=== PATIENT | male | born 1950 | race Caucasian/White ===

== ENCOUNTER 2016-07-16 11:44 | Day surgery (SDC) | payer MEDICARE, OTHER ==
[~2016-07-16] VITALS: Ht 170.2 cm; Wt 80.0 kg
[~2016-07-16 11:44] MED LIST: 0.9% Sodium Chloride 1,000 ML IV SCH; ACET1TAB95 PO; ASCO500C6 PO; ASPI-973 PO; ATOR20TA PO; CHOL200047 PO; FERR325T6 PO; HYDR-3940 PO; INSU100I SUBQ; INSU100I13 SUBQ; LEVO100T6 PO; MYCO180T3 PO; OMEP20TA86 PO; PSYL0.4C2 PO; Sodium Chloride LOK Flush 10 mL Syringe IV PRN; ZLP10T PO; ZYL100 PO; fentaNYL-PF 50 mCg/mL 2 mL Inj IVPUSH PRN
[2016-07-16] MEDS ORDERED: Ketamine 10 mg/mL 20 mL Inj ONE (11:45)
[2016-07-16] MEDS ORDERED: Propofol 10,000 mCg/mL 20 mL Inj ONE (11:45)
[2016-07-16 12:09] VITALS: BP 140/82; PULSE 117; RESP 16; O2SAT 95
[2016-07-16] MEDS ORDERED: TACR5CAP17 PO (12:38)
[2016-07-16] MEDS ORDERED: TACR1CAP22 PO (12:38)
[2016-07-16] MEDS ORDERED: Lactated Ringer's 1,000 ML IV ONE (13:50)
[2016-07-16] MEDS ORDERED: Lactated Ringer's 1,000 ML IV SCH (13:54)
--- NOTE | 2016-07-16 13:54 | PCM.HPANE ---
Patient Data Surgeon Admitting Provider: Attending Provider:Bryce Gonzalez MD Primary Care Physician:Jaylan Morrow MD Other Provider: Reason for Visit Colon Polyp Ht/WT & BMI Height (Feet): 5 Height (Inches): 7 Weight (Kilograms): 80 Body Mass Index 27.00 Allergies Coded Allergies: fish oil (Verified Allergy, Intermediate, Hives, itching, 07/16/16) hydrocodone (Verified Adverse Reaction, Intermediate, Nausea,Vomiting, ) Past Anesthesia History Anesthesia History: Denies:: Abnormal Airway, Anesthesia Reactions, Difficult Intubation, Fam Anesthesia Reaction, Fam Malignant Hypertherm, Malignant Hyperthermia Diabetes History Hx Diabetes?: Yes Current Bedside Blood Glucose: 120 MRSA MRSA: No Medications Hypertension Medication: No Home Meds Incl Beta Samantha: No Reported Medications Tacrolimus ER (Astagraf XL)5 Mg Capsule5 Mg PO DAILY 07/16/16 Omeprazole 20 Mg Tablet.dr20 Mg PO BID Ref 0 07/15/16 Insulin Aspart (NovoLOG U-100 Pen)100 Unit/Ml Insuln.pen12 Units SUBQ TID 07/15/[address] (Mycophenolic DR)180 Mg Tablet2 Capsule PO BID 07/15/16 Psyllium Husk (Metamucil)0.4 Gram Capsule0.52 Gm PO DAILY 07/15/16 Levothyroxine 100 Mcg Tzytmg734 Mcg PO DAILY For Thyroid Replacement Ref 0 07/15/16 Insulin Glargine (Lantus U100 Solostar Insulin Pen)100 Unit/1 Ml Insuln.pen16 Unit SUBQ HS #1 PENINJ Ref 0 07/15/16 Hydralazine 50 Mg Mxqlla05 Mg PO BID Ref 0 07/15/16 Ferrous Sulfate 325 Mg Tablet.dr325 Mg PO DAILY 30 Days Ref 0 07/15/16 Cholecalciferol (Vitamin D3) (Vitamin D3)2,000 Unit Capsule2,000 Unit PO DAILY 07/15/16 Atorvastatin (Lipitor)20 Mg Xfudgi65 Mg PO DAILY Ref 0 07/15/16 Aspirin 81 Mg Oullmu77 Mg PO DAILY Ref 0 07/15/16 Ascorbic Acid (Vitamin C)500 Mg Capsule.er500 Mg PO DAILY 07/15/16 Zolpidem (Ambien)10 Mg Lbgifo92 Mg PO HS PRN For Insomnia Ref 0 07/15/16 Allopurinol 100 Mg Aamjfh285 Mg PO BID Ref 0 07/15/16 Acetaminophen/Pamabrom (Midol)1 Each Tablet1 Each PO HS 500-25 mg, "Tylenol PM" 07/27/14 Discontinued Reported Medications Tacrolimus ER (Astagraf XL)1 Mg Capsule1 Mg PO DAILY 07/16/16 Magnesium Oxide 400 Mg Noiibo436 Mg PO DAILY 10/23/14 Cholecalciferol (Vitamin D3)1,000 Unit Tablet2,000 Unit PO DAILY 07/27/14 Levothyroxine 100 Mcg Cusvsk895 Mcg PO DAILY For Thyroid Replacement #30 TABLET Ref 0 07/27/14 Ascorbic Acid (Vitamin C)1,000 Mg Tab.ezvh566 Mg PO DAILY #30 TABLET Ref 0 07/27/14 Torsemide 20 Mg Fqlsye45 Mg PO DAILY 30 Days Ref 0 07/27/14 Spironolactone 25 Mg Jbfhif45 Mg PO DAILY #30 TABLET Ref 0 07/27/14 Omeprazole Magnesium (Omeprazole)20 Mg Capsule.dr20 Mg PO BID 30 Days Ref 0 07/27/14 Multivitamin (Multivitamins)1 Each Capsule1 Each PO DAILYWM 07/27/14 Metolazone 5 Mg Tablet5 Mg PO Q4-8H PRN edema #1 TABLET 07/27/14 Psyllium Husk (Metamucil)0.52 Gm Capsule2 Capsule PO BID 07/27/14 Lisinopril 5 Mg Tablet5 Mg PO DAILY #30 TABLET Ref 0 07/27/14 Insulin Glargine (Lantus U100 Solostar Insulin Pen)100 Unit/1 Ml Insuln.pen20 Unit SUBQ QPM-INSULIN #1 PENINJ Ref 0 07/27/14 Glipizide 5 Mg Tablet5 Mg PO BIDAC 30 Days 07/27/14 Docusate Sodium 100 Mg Atiivbj932 Mg PO BID 30 Days Ref 0 07/27/14 Carvedilol 25 Mg Pwhufx67 Mg PO DAILY 30 Days Ref 0 07/27/14 Atorvastatin Calcium 80 Mg Exqzru68 Mg PO DAILY 30 Days Ref 0 07/27/14 Aspirin (Aspir 81)81 Mg Tablet.dr81 Mg PO PM Ref 0 07/27/14 Allopurinol 100 Mg Sqjbie028 Mg PO DAILY 30 Days Ref 0 07/27/14 Discontinued Scripts Ibuprofen 400 Mg Pjewtp789 Mg PO QID PRN For Pain #20 TABLET Prov:Donald Booker MD 07/28/14 History History of ENT Problems?: No HEENT History: Denies:: Abnormal Airway Difficult Intubation Dysphagia Hearing Problem Hx of Heart Problems?: Yes Cardiovascular History: Positive for:: Cardiac Surgery (Pacemaker 2004) Congestive Heart Failure Heart Murmur (Aortic stenosis, mitral stenosis) Hypertension Irregular Heartbeat (tachycardias) Denies:: AICD Atrial Fibrillation Chest Pain Edema Pacemaker Thrombophlebitis Valvular Heart Disease Other Cardiac History: HEART TRANSPLANT NOVEMBER 2014 Hx of Respiratory Problem?: Yes Respiratory History: Positive for:: Chest Surgery (pacemaker) Dyspnea (w/ exertion due to radiation scarring and pulmonary edema) Denies:: Asthma COPD Cough Emphysema Hemoptysis Pneumonia Tuberculosis Other Resp Pertinent History: SCAR IN LUNGS RELATED TO RADIATION Hx Neurologic Problems?: Yes Neurological History: Positive for:: Dizziness (syncopal episodes related to pulmonary edema/sob) Denies:: Alzheimer's Disease CVA Dementia Headaches Parkinson's Disease Seizures Hx of GI Problems?: Yes Gastrointestinal History: Positive for:: Gall Bladder Disease (REMOVED IN 2014 ) Gastroesphageal Reflux (TAKES OMEPROZOLE) Heartburn Denies:: Cirrhosis Diverticulitis Gastrointestinal Bleeding Hepatitis Hiatal Hernia Liver Disease Rectal Bleeding Other GI Pertinent History: HAS REFLUX RELATED TO SCAR TISSUE IN ESOPHAGUS R/ T RADIATION HX OF POLYPS Hx of Problems?: No Male Hx: Denies:: Prostate Problems Scrotal Mass Testicular Surgery Hx Musculoskeletal Problems?: Yes Musculoskeletal History: Positive for:: Back Injury (disc surgery, no chronic pain) Musculoskeletal Trauma (rib fracture from fall) Denies:: Fibromyalgia Joint Replacement Hx of Psycho/Social Problems?: No Psycho Social History: Denies:: Anxiety Hx Depression Hx Surgeries?: Yes (HEART TRANSPLANT, APPE, SPINAL SURGERY, VOCAL CHORD REPLACEMENT) Hx Any Other Health Problems?: Yes Other History: Positive for:: Cancer (Hodgkin's, post chemo/radiation, skin ca removed) Hospitalization (Chemo rx; lead dislodgment, falls) Thyroid Disease (post-ca treatment) Denies:: Endocrine Disease History Blood Transfusions: Denies:: Blood Transfuse Reaction Blood Transfusions (on heart transplant list) Hx Diabetes: YesBedside Blood Glucose: 120 Hx Alcohol Use: Yes (RARE - ONE DRINK EVERY 2 WEEKS)Hx Substance Use: No Smoking Status: Former Smoker Have You Smoked inLast 12 mo: No Stop/Bang Treated for Sleep Apnea?: Yes Do You Have a CPAP Machine?: Yes S-Snoring: Do You Snore Loudly: Yes T-Tired: feel tired, fatigued: Yes O-Obsered: Observed not breath: Yes P-Blood Pressure: treated: No A- Age over 50: Yes N- Neck Large Circumference: No G- Gender Male: Yes KAREN Risk Assessment: High Risk, =/>3 Yes KAREN Category 4 OutPt Procedure: Yes Risk Assessment Category Category 1A: Patient has history of documented sleep apnea, and HAS NOT received any narcotic, sedative or anesthesia administration during this stay. Category 1B: Patient has history of documented sleep apnea, and HAS received any narcotic , sedative or anesthesia administration during this stay Category 2: Patient has SUSPECTED Obstructive Sleep Apnea, and HAS received any narcotic , sedative or anesthesia administration during this stay. Category 3: Patient has SUSPECTED Obstructive Sleep Apnea and HAS NOT received narcotic, sedative or anesthesia administration during this stay. Category 4: Outpatient in Procedural Areas with known sleep apnea or who screen positive for High Risk via the STOP/BANG questionnaire. Exam Exam Vital Signs Vital Signs Date Time Temp Pulse Resp B/P Pulse Ox O2 Delivery O2 Flow Rate FiO2 07/16/16 12:09 117 16 140/82 95 Room Air General Appearance: Alert, Oriented X3, Cooperative, No Acute Distress HEENT/AIRWAY: MP 2 Lungs: Clear to Auscultation, Normal Air Movement Heart: Exam Unremarkable, Regular Rate/Rhythm, No Murmurs/Rubs/Gallops Meds/Labs/Diagnostics Bedside Blood Glucose: 120 Plan Impression Patient chart reviewed, patient interviewed and anesthestic plan with risks, benefits, and alternatives discussed, and informed consent obtained. ASA Physical Status: ASA3 Severe Disease (hx heart transplant) Anesthetic Plan: MAC Bene/Risks/Altern/Consents: Yes HP Complete Prior to Induction: Yes Sean Ngo MD Jul 16, 2016 13:54
[2016-07-16] MEDS ORDERED: MetoCLOpramide 5 mg/mL 2 mL Inj IVPUSH PRN (13:55)
[2016-07-16] MEDS ORDERED: Ondansetron 2 mg/mL 2 mL Inj IVPUSH PRN (13:55)
[2016-07-16 15:11] VITALS: BP 135/68; PULSE 87; O2SAT 95
[2016-07-16 15:22] VITALS: BP 146/90; PULSE 146; O2SAT 97
--- NOTE | 2016-07-16 15:36 | ENDO ---
[address] [address] ENDOSCOPY PROCEDURE PATIENT: NENO EGAN : 1950 MR#: [id number] ADMIT: 07/16/2016 JOB ID: [id number] DATE: 07/16/2016 PRIMARY PROVIDER: Jaylan Morrow MD PROCEDURE: Colonoscopy with hot snare polypectomy, cold snare polypectomy, hot forceps polypectomy and cold forceps polypectomy. INDICATIONS: A 65-year-old male with a personal history of colon polyp returning for surveillance. EQUIPMENT: [employer] H 180 AL. SEDATION: Monitored anesthesia as provided by Dr. Sean Ngo. COMPLICATIONS: None identified. BOWEL PREPARATION: Fair, adequate examination. PROCEDURAL INFORMATION: After the risks and benefits were explained, written and verbal informed consent was obtained. The patient was brought into the endoscopy suite and placed into the left lateral decubitus position. Sedation was achieved using the above-stated medications with the addition of oxygen via nasal cannula. A digital rectal examination was accomplished. No significant pathology appreciated. The scope was introduced into the rectum and advanced under direct visualization to the cecum as identified by the appendiceal orifice and ileocecal valve. The scope was slowly withdrawn to carefully examine the mucosa for any defects or lesions. Multiple direct views were made through the dentate line for exclusion of pathology. The colon was decompressed. The scope removed from the patient who tolerated the procedure well. FINDINGS: Thirteen polyps were seen and removed today. The largest was perhaps somewhere in the 8-9 mm range. Most of these were in the approximately 5-6 mm range. There was one polyp that was on the backside of the ileocecal valve that we attempted with snare. A small amount of this was left in situ and needed to be cleaned up with hot forceps. There was another polyp in the cecum that was removed by way of cold forceps. A couple of very diminutive polyps down in the rectosigmoid region were removed with cold snare. All of the other ones were removed with hot snare. These were submitted as "colon polyps." Procedure time was prolonged and a 22 modifier was requested considering the number of polyps removed today. ENDOSCOPIC DIAGNOSES: Multiple colon polyps. RECOMMENDATIONS: 1. Await histopathology. 2. Repeat colonoscopy in one year.
--- NOTE | 2016-07-16 20:06 | PCM.ANEP2 ---
Post Anesthesia Evaluation ASA/CMS Post Anesthesia VS in Patient's Normal Range?: Yes Resp Stable; Airway Patent?: Yes CV Function & Hydration Stable: Yes Mental Status Recovered?: Yes Pain control Satisfactory?: Yes N/V Control Satisfactory?: Yes Sean Ngo MD Jul 16, 2016 20:06
--- NOTE | 2016-07-16 20:06 | PCM.ANEP1 ---
Post Anesthesia Phase 1 PACU Phase 1 Assessment Vital Signs Vital Signs Date Time Temp Pulse Resp B/P Pulse Ox O2 Delivery O2 Flow Rate FiO2 07/16/16 15:22 146 146/90 97 Room Air 07/16/16 15:11 87 135/68 95 Room Air 07/16/16 12:09 117 16 140/82 95 Room Air Anesthetic Administered: MAC Level of Alertness: Awake, talking TONEY's with Equal Strength: Yes Pain: No Nausea or Vomiting: No Oxygen Delivery: Nasal Cannula Lungs: Clear to Auscultation, Normal Air Movement Dermatome Level: Full Sensation Sean Ngo MD Jul 16, 2016 20:06
--- NOTE | 2016-07-22 10:17 | PATH ---
SURGICAL PATHOLOGY Attending Physician:Nati Pham CASE STATUS: Signed Out PATIENT NAME: NENO EGAN PID: [id number] : 1950 DATE COLLECTED:07/16/2016 00:00 SPECIMEN: Colon, Biopsy CLINICAL HISTORY: 1).COLON POLYP X13 FINAL DIAGNOSIS: 1.COLON POLYPS: TUBULAR ADENOMAS, MULTIPLE FRAGMENTS. 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 HYPERPLASTIC POLYP, ONE. Multiple microscopic levels examined. ICD10 code D12.6 GROSS DESCRIPTION: The specimen is received in one formalin filled container labeled with the patient's name, sublabeled "colon polyp" and consists of multiple portions of tissue and friable material which aggregate to 2.0 x 1.3 x 0.5 CM. The specimen is entirely submitted in one cassette. 07/17/2016 DAC MICRO DESCRIPTION: See diagnosis. ICD-9 CODES: CPT CODES: 1: 09247 Electronically Signed Out Racquel Bender MD Formerly [facility] [address], [place] [address] Technical component performed at [facility], [address] [place] [address] Ave[address], [place], [address]
== END 2016-07-16 23:59 | disposition home or self-care (01) ==
LOC: END 11:44
PROVIDERS: ATTEND Internal Medicine Gastroenterology
DX: Z12.11 Encounter for screening for malignant neoplasm of colon (principal); Z86.010 Personal history of colon polyps; D12.6 Benign neoplasm of colon, unspecified; K63.5 Polyp of colon; E11.9 Type 2 diabetes mellitus without complications; Z79.4 Long term (current) use of insulin; G47.33 Obstructive sleep apnea (adult) (pediatric); Z94.1 Heart transplant status
CPT/HCPCS: 45380; 45384; 45385; J7120